=== PATIENT | male | born 1950 | race Caucasian/White ===

== ENCOUNTER → 2019-04-29 00:01 | Outpatient (RCR) | payer OTHER, SELFPAY | LOC: GILAB 04-01 15:01 | PROVIDERS: Family Provider Emergency Medicine Emergency Medical Services; Visit Provider Thoracic Surgery (Cardiothoracic Vascular Surgery) | DX: E86.0 Dehydration (principal); R53.81 Other malaise; J90 Pleural effusion, not elsewhere classified; T81.31XA Disruption of external operation (surgical) wound, not elsewhere classified, initial encounter; Y83.8 Other surgical procedures as the cause of abnormal reaction of the patient, or of later complication, without mention of misadventure at the time of the procedure | CPT/HCPCS: 11042 ×4; 96360 ×4; 96361 ×4; 97605 ×2; G0463 ×4 ==

== ENCOUNTER 2019-05-01 11:07 | Outpatient (RCR) | payer OTHER, MEDICARE, SELFPAY ==
[2019-05-01 11:09] VITALS: BP 108/61; PULSE 90; RESP 18; TEMP 36.9; O2SAT 97; BMI 22.9
[2019-05-01] MEDS: sodium chloride 0.9% 1,000 ML 333 ML (11:35)
[2019-05-08 10:25] VITALS: BP 118/63; PULSE 102; RESP 18; TEMP 36.6; O2SAT 95; BMI 22.9
[2019-05-08] MEDS: sodium chloride 0.9% 1,000 ML 333 ML (10:40)
[2019-05-15 11:07] VITALS: BP 124/77; PULSE 114; RESP 18; TEMP 36.7; O2SAT 98
[2019-05-15] MEDS: sodium chloride 0.9% 1,000 ML 30 ML (11:11)
[2019-05-22 11:03] VITALS: BP 104/61; PULSE 115; RESP 20; TEMP 37.1; O2SAT 98
[2019-05-22] MEDS: sodium chloride 0.9% 1,000 ML 333.3 ML IV (11:10)
[2019-05-29 11:09] VITALS: BP 101/61; PULSE 112; RESP 20; TEMP 37.3; O2SAT 96
[2019-05-29] MEDS: sodium chloride 0.9% 1,000 ML 33 ML (11:15)
== END 2019-05-30 23:59 | disposition home or self-care (01) ==
LOC: GILAB 11:07
PROVIDERS: Family Provider Emergency Medicine Emergency Medical Services; PCP Emergency Medicine Emergency Medical Services; Visit Provider Internal Medicine Critical Care Medicine
DX: E86.0 Dehydration (principal); R53.81 Other malaise; J90 Pleural effusion, not elsewhere classified
CPT/HCPCS: 96360; 96361; J7030

== ENCOUNTER 2019-05-14 13:07 | Outpatient (CLI) | payer OTHER, MEDICARE, SELFPAY | END 2019-05-14 13:08 | disposition home or self-care (01) | PROVIDERS: Family Provider Emergency Medicine Emergency Medical Services; PCP Emergency Medicine Emergency Medical Services; Visit Provider Internal Medicine Critical Care Medicine | DX: J43.9 Emphysema, unspecified (principal) | CPT/HCPCS: 94060; 94726; 94729; J7611 ==

== ENCOUNTER 2019-05-27 14:36 | Outpatient (RCR) | payer OTHER, MEDICARE, SELFPAY | END 2019-05-30 23:59 | disposition home or self-care (01) | LOC: WOUND 14:36 | PROVIDERS: Family Provider Emergency Medicine Emergency Medical Services; PCP Emergency Medicine Emergency Medical Services; Visit Provider Thoracic Surgery (Cardiothoracic Vascular Surgery) | DX: T81.31XA Disruption of external operation (surgical) wound, not elsewhere classified, initial encounter (principal); Y83.8 Other surgical procedures as the cause of abnormal reaction of the patient, or of later complication, without mention of misadventure at the time of the procedure; I96 Gangrene, not elsewhere classified | CPT/HCPCS: 11042; 96360; 96361 ==

== ENCOUNTER 2019-06-03 | Outpatient (RCR) | payer OTHER, MEDICARE, SELFPAY ==
[2019-06-03 10:59] VITALS: BMI 22.9
[2019-06-03 11:03] VITALS: BP 98/52; PULSE 104; RESP 18; TEMP 36.3; O2SAT 96
[2019-06-03] MEDS: sodium chloride 0.9% 1,000 ML 333 ML (11:06)
== END 2019-06-11 | disposition home or self-care (01) ==
LOC: GILAB
PROVIDERS: PCP Emergency Medicine Emergency Medical Services; Visit Provider Internal Medicine Critical Care Medicine
DX: J90 Pleural effusion, not elsewhere classified (principal)
CPT/HCPCS: 96365; 96366; J7030

== ENCOUNTER 2019-06-17 08:41 | Outpatient (RCR) | payer OTHER, MEDICARE, SELFPAY ==
--- NOTE | 2019-06-03 14:10 | CT_ITS ---
WS: [id number] CT scan of the chest with IV contrast, additional two-dimensional coronal and sagittal reconstruction was performed. 06/03/2019 Clinical Data: PAIN/SPLENOMEGALY/PLEURAL EFFUSION/ S/P THORACOTOMY Comparison: CTA of the chest, 03/26/2019 DLP: 1126.92 mGy-cm. All CT scans at [facility] use at least one of these dose optimization techniques: automat ed exposure control; mA and/or kV adjustment per patient size (includes targeted exams where dose is matched to clinical indication); or iterative reconstruction. Findings: Volume loss left lung with circumferential pleural thickening remains unchanged. Right lung is fully expanded. No nodules or masses are seen. Coronary artery calcification is again seen.. The heart size is normal with a small pericardial effusion. The pulmonary arterial system and thoracic aorta demons trate no abnormalities or dilatations. The left suprahilar lymph nodes maintain unchanged. No axillar y adenopathy is noted. The bones of the thorax show osteoarthritis of the thoracic vertebral bodies. FINDINGS: The spleen shows uniform enlargement with its greatest superior inferior dimension of 20.1 cm. No intrasplenic masses or capsular abnormalities are seen. The liver is enlarged measuring 23.3 c m and this can be seen with cirrhosis. Several intestinal varices are noted. The gallbladder is absen t with clips in the gallbladder fossa from a cholecystectomy. The adrenal glands and pancreas are nor mal. The kidneys show excellent bilateral contrast excretion with at least 2 small nonobstructing lef t renal calculi. No hydronephrosis, mass or obstruction is seen.. There is a small posterior right re nal cortical cyst. Abdominal aorta is normal in size with calcification of the wall. There is oral co ntrast within the stomach and small bowel. No obstruction is present. No abscess, adenopathy, ascites , mass or free air is present. The lumbar vertebral bodies show moderate osteoarthritic change. CT/CT chest abdomen w con* Impression: 1. Volume loss of the left lung with a circumferential pleural thickening remai ns unchanged. . 2. Hyperexpansion of the right lung unchanged. 3. No acute cardiopulmonary changes are noted. CT abdomen, additional sagittal and coronal imaging was performed IMPRESSION: 1. Hepatosplenomegaly with small varices most consistent with cirrhosis 2. Absent gallbladder.
[2019-06-03 15:06] LABS: Blood Urea Nitrogen 14 mg/dL (8-23); Glomerular Filtration Rate 112.1 mL/min (90-130)
[2019-06-03] MEDS: iohexol 300 mg/mL 100 mL Btl IV (15:23)
[2019-06-10] MEDS: sodium chloride 0.9% 1,000 ML 333 ML IV (10:23)
[2019-06-10 10:41] VITALS: BMI 22.1
[2019-06-10 10:50] VITALS: BP 94/54; PULSE 100; RESP 18; TEMP 37.7; O2SAT 96
[2019-06-17] MEDS: sodium chloride 0.9% 1,000 ML 333 ML IV (09:50)
[2019-06-17] MEDS: sodium chloride 0.9% 1,000 ML 335 ML (10:00)
[2019-06-17 10:03] VITALS: BP 113/57; PULSE 110; RESP 20; TEMP 36.5; O2SAT 96
[2019-06-24 09:47] VITALS: BP 119/52; PULSE 102; RESP 20; TEMP 36.1; O2SAT 95
[2019-06-24] MEDS: sodium chloride 0.9% 1,000 ML 333 ML IV (09:57)
== END 2019-06-28 23:59 | disposition home or self-care (01) ==
LOC: WOUND 08:41
PROVIDERS: Family Provider Emergency Medicine Emergency Medical Services; PCP Emergency Medicine Emergency Medical Services; Visit Provider Thoracic Surgery (Cardiothoracic Vascular Surgery)
DX: J90 Pleural effusion, not elsewhere classified (principal); D73.2 Chronic congestive splenomegaly; T81.31XA Disruption of external operation (surgical) wound, not elsewhere classified, initial encounter; Y83.8 Other surgical procedures as the cause of abnormal reaction of the patient, or of later complication, without mention of misadventure at the time of the procedure
CPT/HCPCS: 11042; 36415; 71260; 74160; 82565; 84520; 96360; 96361; 99212; J7030

== ENCOUNTER 2019-07-01 09:51 | Outpatient (RCR) | payer OTHER, MEDICARE, SELFPAY ==
[2019-07-01 10:05] VITALS: BP 95/60; PULSE 108; RESP 20; TEMP 36.7; O2SAT 96; BMI 21.5
[2019-07-01] MEDS: sodium chloride 0.9% 1,000 ML 400 ML (10:15)
[2019-07-08 10:03] VITALS: BP 113/59; PULSE 102; RESP 18; TEMP 36.9; O2SAT 98
[2019-07-08] MEDS: sodium chloride 0.9% 1,000 ML 999 ML (10:06)
== END 2019-07-29 23:59 | disposition home or self-care (01) ==
LOC: GILAB 09:51
PROVIDERS: Family Provider Emergency Medicine Emergency Medical Services; PCP Emergency Medicine Emergency Medical Services; Visit Provider Student in an Organized Health Care Education/Training Program
DX: E86.0 Dehydration (principal); R53.81 Other malaise; J90 Pleural effusion, not elsewhere classified
CPT/HCPCS: 96360; 96361; 96365; J7030

== ENCOUNTER 2019-07-23 10:07 | Outpatient (CLI) | payer OTHER, MEDICARE, SELFPAY ==
[2019-07-23 10:34] VITALS: BP 104/65; PULSE 98; RESP 18; TEMP 36.8; O2SAT 98
[2019-07-23] MEDS: sodium chloride 0.9% 1,000 ML 999 ML IV (10:35)
[2019-07-23 11:45] VITALS: BP 111/65; PULSE 97; RESP 18; TEMP 36.5; O2SAT 98
--- NOTE | 2019-07-23 11:59 | PC.NURSE ---
1015 A&O x3. States weak, become SOB and exhausted with exertion. c/o pain to L rib/chest area from previous drains and procedures. States willing to eat, but cooking for self is exhausting. States has some frozen meals. Lungs diminished on Left, clear on right. COVID 19 screening negative. Friend drove him to appt will wait in car.
--- NOTE | 2019-07-23 12:02 | PC.NURSE ---
1145 Clear lungs, diminished on Left. absent lower left base after NS bolus. Msg sent to [facility] office regarding pt pain needs and [facility] regarding [facility]. Assisted to parking lot to friend.
== END 2019-07-23 10:08 | disposition home or self-care (01) ==
LOC: RHEOACUTE 10:09
PROVIDERS: Family Provider Emergency Medicine Emergency Medical Services; PCP Emergency Medicine Emergency Medical Services; Visit Provider Internal Medicine Rheumatology
DX: E86.0 Dehydration (principal)
CPT/HCPCS: 96365; J7030

== ENCOUNTER 2019-08-06 11:17 | Outpatient (CLI) | payer OTHER, MEDICARE, SELFPAY ==
[2019-08-06] MEDS: sodium chloride 0.9% 1,000 ML 999 ML IV (11:28)
[2019-08-06 11:30] VITALS: BP 92/58; PULSE 102; RESP 20; TEMP 36.4; O2SAT 94
[2019-08-06 12:39] VITALS: BP 100/56; PULSE 96; RESP 16; TEMP 36.2
== END 2019-08-06 11:18 | disposition home or self-care (01) ==
LOC: RHEOACUTE 11:18
PROVIDERS: Family Provider Emergency Medicine Emergency Medical Services; PCP Emergency Medicine Emergency Medical Services; Visit Provider Internal Medicine Rheumatology
DX: E86.0 Dehydration (principal); J90 Pleural effusion, not elsewhere classified
CPT/HCPCS: 96365; J7030

== ENCOUNTER 2019-08-20 11:53 | Emergency (ER) | payer OTHER, SELFPAY ==
[2019-08-20 12:02] VITALS: BP 116/61; PULSE 108; RESP 17; TEMP 36.9; O2SAT 99; BMI 21.1
--- NOTE | 2019-08-20 12:04 | CT_ITS ---
WS: [id number] CT CHEST TECHNIQUE: Contrast enhanced CT of the chest with coronal and sagittal reformatted images. CLINICAL INFORMATION: left chest wall mass COMPARISON: CT June 03, 2019 DLP: 709.[address] scans at [facility] use at least one of these dose optimization techniques: automat ed exposure control; mA and/or kV adjustment per patient size (includes targeted exams where dose is matched to clinical indication); or iterative reconstruction. FINDINGS: Again seen is volume loss left lung with diffuse circumferential peripheral enhancing nodular pleural thickening progressed since the prior examination consistent with known neoplasm. Small volume pleur al fluid with a few pockets of air. Presumed neoplasm involves the intercostal spaces and multiple ri bs. This extends into the left upper abdominal wall with induration in the subcutaneous soft tissues. This extends to abut the pericardium and anterior mediastinum also present on the prior examination. Some of this may represent loculated pleural fluid/empyema Right lung is well aerated. Multiple new/progressed noncalcified nodules suspicious for metastatic di sease right upper lobe, right middle lobe, and right lower lobe. Largest nodule in the right lower lo be laterally measures 7.5 mm. Remaining nodules are subcentimeter in size. Enlarged pathologic AP win jeri no mediastinal and peribronchial lymph nodes. Cholecystectomy clips. Multiple new low-attenuation lesions in the liver partially evaluated most consistent with metastati c disease the largest lesions right hepatic lobe. Largest lesion measures 11 mm. Hepatomegaly. Spleno megaly. Cirrhosis with portal hypertension and varices.Mild thoracic curve. Thoracic kyphosis. Notified Dillan Villarreal MD at 08/20/2019 2:[address]/CT chest w con* [id number] IMPRESSION: 1. Evidence of progressed left lung circumferential diffuse neoplasm with prog ressed metastatic disease. 2. Volume loss left lung with diffuse nodular pleural-based thickening likely representing presumed neoplasm with empyema. This extends into the intercostal muscles and pleura. Extension into the left upper abdominal wall abutting the s kin with induration. This is progressed from previous. Diffuse involvement of t he intercostals and associated ribs. 3. Multiple new noncalcified pulmonary nodules right lung described above cons istent with metastatic disease. 4. Multiple new lesions partially visualized in the right hepatic lobe most co nsistent with metastatic disease. 5. Hepatomegaly with splenomegaly with cirrhosis and portal hypertension.
--- NOTE | 2019-08-20 12:06 | ED_ITS ---
HPI - Chest Pain General: Chief Complaint: General Medical Stated Complaint: LEFT SIDE MASS Time Seen by Provider: 08/20/19 12:00 Source: patient Mode of arrival: ambulatory Limitations: no limitations History of Present Illness: HPI narrative: 69-year-old male who has a history of having a Morley drain left side of his chest. He states over the last 2 to 3 weeks has had increasing swelling and pain where the drain was placed. He does have a large 7 to 8 cm area that is hard and swollen and quite tender. He denies any fevers. Denies any shortness of breath. Pain is worse with palpation. Associated symptoms: Deny abdominal pain, dyspnea, fever(s), nausea or vomiting Review of Systems Const: Denies: fever, chills, body aches or change in appetite Eyes: Denies: blurry vision or eye discomfort ENMT: Denies: throat pain or dental pain Card: Reports: chest pain Resp: Denies: shortness of breath GI: Denies: abdominal pain, nausea, vomiting or diarrhea : Denies: painful urination Musc: Denies: neck pain or back pain Skin/Breast: Denies: rash Neuro: Denies: headache Psych: Denies: depression Juan Diego/Lymph: Denies: easy bruising All/Imm: Denies: hives PFSH ED PFSH: Medical History (Updated 08/20/19 @ 15:42 by Dillan Villarreal MD) Carpal tunnel syndrome of left wrist Essential (primary) hypertension GERD (gastroesophageal reflux disease) History of throat cancer Hypothyroidism Osteoarthritis Pleural effusion Spleen enlarged Type 2 diabetes mellitus Surgical History (Updated 07/08/19 @ 13:51 by Elsa Quick MD) H/O eye surgery H/O rotator cuff surgery H/O shoulder surgery H/O wrist surgery History of carpal tunnel surgery of left wrist History of cholecystectomy History of lung surgery History of thoracentesis Hx of tonsillectomy Social History Smoking and tobacco status: never smoked Quit status (tobacco): has quit using tobacco Year quit tobacco: 1988 - 1.5 PPD x 15 Years Alcohol intake: former Year of sobriety/quit date alcohol: 1988 Lives independently: Yes Household members: none service: Yes Current occupational status: retired and disabled History of recent travel: No Current gender identity: Male Physical Exam Const: COMMON NORMALS: no apparent distress, oriented x3 and healthy appearing HENMT: COMMON NORMALS: normocephalic and head/scalp atraumatic HEAD & SCALP: normocephalic and atraumatic Eye: COMMON NORMALS: PERRL and EOMs intact bilaterally PUPIL: Yes PERRL Neck/C-Spine: COMMON NORMALS: full ROM and supple Chest: COMMONS NORMALS: palpation of chest normal OTHER: Swelling over left side of chest with tenderness no abscess formation. Resp: COMMON NORMALS: normal respiratory effort, no retractions, no use of accessory muscles and clear to auscultation bilaterally AUSCULTATION: clear to auscultation bilaterally Cardio: COMMON NORMALS: regular rate, regular rhythm and no murmurs RATE: regular rate RHYTHM: regular rhythm GI: COMMON NORMALS: normal to inspection, nondistended, normoactive bowel sounds, soft to palpation, non-tender and no masses PALPATION: Yes soft Extremity: COMMON NORMALS: normal to inspection and full ROM Neuro: COMMON NORMALS: oriented x3, moves all extremities and no focal motor deficits Psych: COMMON NORMALS: mental status grossly normal, thought process normal and cooperative THOUGHT PROCESS: normal thought process Skin: COMMON NORMALS: no rashes or lesions noted and no wounds GENERAL SKIN EXAM: no rashes or lesions noted Course Vital Signs: Vital signs: Vital Signs Temperature 98.4 F 08/20/19 12:02 Pulse Rate 86 08/20/19 16:00 Respiratory Rate 16 08/20/19 16:00 Blood Pressure 101/54 08/20/19 16:00 Pulse Oximetry 96 08/20/19 16:00 MDM - Chest Pain MDM Narrative: Medical decision making narrative: Patient presents here with lumps in his outer chest wall. CT of his chest shows likely lung mass with mets. He is to follow-up with Dr. Terrence Cespedes and oncology. Patient has no signs of coronary cause for his pain. Patient feels improved and will prescribe pain meds for home. He is stable for discharge and return if worsening. Lab Data: Labs: Lab Results 08/20/19 08/20/19 08/20/19 Range/Units 12:27 12:27 14:51 WBC 7.9 (4.0-10.0) 10^3/ uL RBC 3.92 L (4.1-5.3) 10^6/u L Hgb 8.5 L (11.7-16.6) g/dL Hct 29.6 L (42.0-52.0) % MCV 75.5 L (80-94) fL MCH 21.7 L (28.0-34.0) pg MCHC 28.7 L (30.0-36.0) g/dL RDW 17.9 H (12.1-15.1) % Plt Count 368 (130-400) 10^3/c mm MPV 10.7 H (7.4-10.4) fL Neut % (Auto) 77.8 % Lymph % (Auto) 12.2 % [place] % (Auto) 8.2 % Eos % (Auto) 1.1 % Baso % (Auto) 0.3 % Neut # (Auto) 6.1 (1.8-7.7) 10^3/u L Lymph # (Auto) 1.0 (0.8-4.8) 10^3/u L [place] # (Auto) 0.6 (0.2-0.9) 10^3/u L Eos # (Auto) 0.1 (0.0-0.8) 10^3/u L Baso # (Auto) 0.0 (0.0-0.1) 10^3/u L Nucleated RBC % (a uto) 0 % Nucleated RBCs # 0.0 /100WBC Sodium Cancelled 134 L Potassium Cancelled 4.9 Chloride Cancelled 95 L Carbon Dioxide Cancelled 29 Anion Gap Cancelled 14.9 BUN Cancelled 19 Creatinine Cancelled 0.7 GFR Calculation Cancelled 112.1 Glucose Cancelled 118 H Calculated Osmolal ity Cancelled 276 L Calcium Cancelled 10.1 Total Bilirubin Cancelled 0.2 AST Cancelled 19 ALT Cancelled 10 Alkaline Phosphata se Cancelled 425 H Total Protein Cancelled 7.9 Albumin Cancelled 2.7 L Globulin Cancelled 5.2 H Imaging Data^: CT Chest: Attestation: I personally reviewed and interpreted this imaging study as follows: Radiologist's impression: [address] [place] [address] CT Scan Report Signed Patient: Adam Sams Unit #: [id number] : [id number] Age/Sex: 69 / M ADM Date: 08/20/19 Loc: ER Room/Bed: Attending Dr: Ordering Provider/Ordering MD: Dillan Villarreal MD Date of Service: 08/20/19 Procedure(s): CT chest w con* [id number] Accession Number(s): [id number] Report Number: [id number] WS: [id number] CT CHEST TECHNIQUE: Contrast enhanced CT of the chest with coronal and sagittal refor matted images. CLINICAL INFORMATION: left chest wall mass COMPARISON: CT June 03, 2019 DLP: 709.[address] scans at [facility] use at least one of these dose opt imization techniques: automated exposure control; mA and/or kV adjustment per patient size (includes targeted exams where dose is matched to clinical indication); or iterative reconstruction. FINDINGS: Again seen is volume loss left lung with diffuse circumferential peripheral enhancing nodular pleural thickening progressed since the prior examination consistent with known neoplasm. Small volume pleural fluid with a few pockets of air. Presumed neoplasm involves the intercostal spaces and multiple ribs. This extends into the left upper abdominal wall with induration in the subcutaneous soft tissues. This extends to abut the pericardium and anterior mediastinum also present on the prior examination. Some of this may represent loculated pleural fluid/empyema Right lung is well aerated. Multiple new/progressed noncalcified nodules suspicious for metastatic disease right upper lobe, right middle lobe, and right lower lobe. Largest nodule in the right lower lobe laterally measures 7.5 mm. Remaining nodules are subcentimeter in size. Enlarged pathologic AP window no mediastinal and peribronchial lymph nodes. Cholecystectomy clips. Multiple new low-attenuation lesions in the liver partially evaluated most consistent with metastatic disease the largest lesions right hepatic lobe. Largest lesion measures 11 mm. Hepatomegaly. Splenomegaly. Cirrhosis with portal hypertension and varices.Mild thoracic curve. Thoracic kyphosis. Notified Dillan Villarreal MD at 08/20/2019 2:[address]/CT chest w con* [id number] IMPRESSION: 1. Evidence of progressed left lung circumferential diffuse neoplasm with progressed metastatic disease. 2. Volume loss left lung with diffuse nodular pleural-based thickening likely representing presumed neoplasm with empyema. This extends into the intercostal muscles and pleura. Extension into the left upper abdominal wall abutting the skin with induration. This is progressed from previous. Diffuse involvement of the intercostals and associated ribs. 3. Multiple new noncalcified pulmonary nodules right lung described above consistent with metastatic disease. 4. Multiple new lesions partially visualized in the right hepatic lobe most consistent with metastatic disease. 5. Hepatomegaly with splenomegaly with cirrhosis and portal hypertension. Discharge Plan Discharge Patient Disposition: Home, Self-Care Clinical Impression: Lung mass Condition: Stable Prescriptions: [place] 5-325 mg tablet 1 tab PO Q6H PRN (Reason: pain) Qty: 14 RF: 0 No Action pantoprazole 20 mg tablet,delayed release (DR/EC) 20 mg PO BID RF: 0 Glucerna Liquid 1 each PO QID PRNRF: 0 docusate sodium [Stool Softener] 100 mg capsule 100 mg PO TID RF: 0 Best Fiber 3 gram/3.5 gram powder 1.5 gm PO DAILY RF: 0 acetaminophen [Tylenol] 325 mg capsule 650 mg PO QID PRNRF: 0 Anoro Ellipta 62.5-25 mcg/actuation blister with device 1 inh INHALATION DAILY Qty: 60 RF: 4 ferrous sulfate 325 mg (65 mg iron) Tablet 325 mg PO EVERY OTHER DAY RF: 0 levothyroxine 137 mcg Capsule 139 mcg PO DAILY RF: 0 albuterol sulfate 90 mcg/actuation Hfa Aerosol Inhaler 2 puff INHALATION QID PRN (Reason: Pain) RF: 0 colchicine 0.6 mg Tablet 0.6 mg PO DAILY PRN (Reason: GOUT) RF: 0 fluticasone propionate [Flonase Allergy Relief] 50 mcg/actuation [place],Suspension 1 spray INTRANASAL DAILY RF: 0 Creon 3,000-9,500- 15,000 unit Capsule,Delayed Release(Dr/Ec) 6,000 cap PO TID RF: 0 Discharge Orders: Discharge Order (Routine); Ordered 08/20/19 Ordered By: Dillan Villarreal Referrals: Alex Baeza DO [Primary Care Provider] - Elsa Quick MD [Physician] - Discharge Diet: Advance as tolerated Discharge Activity: Resume usual activity Patient Instructions: Lump/Mass Discharge Date/Time: 08/20/19 16:02 Coding Level of Care Code ED Fund Accountant for Chg Fwd Exam Comprehensive
[2019-08-20 12:29] VITALS: RESP 17
[2019-08-20 12:34] VITALS: RESP 16
[2019-08-20] MEDS: morphine 4 mg/mL SDV 1 mL IVP (12:34)
[2019-08-20] MEDS: ondansetron 2 mg/ML SDV 2 mL 4 MG IVP (12:34)
[2019-08-20 12:51] LABS: Basophils % 0.3 %; Eosinophils # 0.1 10^3/uL (0.0-0.8); Eosinophils % 1.1 %; Hematocrit 29.6 % (42.0-52.0); Hemoglobin 8.5 g/dL (11.7-16.6); Lymphocytes % 12.2 %; Mean Corpuscular HGB Conc 28.7 g/dL (30.0-36.0); Mean Corpuscular Hemoglobin 21.7 pg (28.0-34.0); Mean Corpuscular Volume 75.5 fL (80-94); Mean Platelet Volume 10.7 fL (7.4-10.4); Monocytes # 0.6 10^3/uL (0.2-0.9); Monocytes % 8.2 %; Neutrophils # 6.1 10^3/uL (1.8-7.7); Neutrophils % 77.8 %; Nucleated Red Blood Cells % 0 %; Platelet Count 368 10^3/cmm (130-400); Red Blood Count 3.92 10^6/uL (4.1-5.3); Red Cell Distribution Width 17.9 % (12.1-15.1); White Blood Count 7.9 10^3/uL (4.0-10.0)
[2019-08-20] MEDS: iohexol 300 mg/mL 100 mL Btl IV (13:33)
[2019-08-20 13:59] VITALS: O2SAT 96
[2019-08-20 15:00] VITALS: BP 87/48; RESP 16; O2SAT 96
[2019-08-20 15:19] LABS: Alanine Aminotransferase 10 U/L (0-41); Albumin Level 2.7 g/dL (3.5-5.2); Alkaline Phosphatase 425 IU/L (40-130); Anion Gap 14.9 (5-19); Aspartate Amino Transferase 19 U/L (0-40); Blood Urea Nitrogen 19 mg/dL (8-23); Calcium 10.1 mg/dL (8.5-10.5); Carbon Dioxide 29 mmol/L (22-29); Chloride 95 mmol/L (98-107); Globulin 5.2 g/dL (1.3-4.6); Glomerular Filtration Rate 112.1 mL/min (90-130); Glucose 118 mg/dL (65-115); Osmolality Calculated 276 mOsm/kg (285-295); Potassium 4.9 mmol/L (3.5-5.1); Sodium 134 mmol/L (136-145); Total Bilirubin 0.2 mg/dL (0.15-1.2); Total Protein 7.9 g/dL (6.6-8.7)
[2019-08-20] MEDS: sodium chloride 0.9% 1,000 ML 999 ML IV (15:19)
[2019-08-20 16:00] VITALS: BP 101/54; PULSE 86; RESP 16; O2SAT 96
--- NOTE | 2019-08-22 10:48 | DCPLANNER ---
resident care manager had message to refer patient to oncology, and Dr. Qucik. resident care manager called oncology, spoke with Jose L, was told that patient would need to start with Dr. Quick to have some pathology completed. resident care manager called [facility], spoke with Kiara, gave [facility] the referral, was told that patients information would be printed and reviewed. Clinic will call patient with appointment information. resident care manager also called K[facility] and informed her that patient was seen in the ED and that patient needed a referral to [facility] and oncology.
--- NOTE | 2019-08-26 08:48 | DCPLANNER ---
Patient has a follow up appointment scheduled for Monday, August 26, 2019 at 3:[address] Quick. Clinic will call patient with appointment information.
--- NOTE | 2019-09-16 15:21 | DCPLANNER ---
Patient did attend appointment scheduled for 08.26.19 with [facility].
== END 2019-08-20 16:02 | disposition home or self-care (01) ==
PROVIDERS: Emergency Provider Emergency Medicine; Family Provider Emergency Medicine Emergency Medical Services; PCP Emergency Medicine Emergency Medical Services
DX: R91.8 Other nonspecific abnormal finding of lung field (principal); I10 Essential (primary) hypertension; K21.9 Gastro-esophageal reflux disease without esophagitis; Z85.21 Personal history of malignant neoplasm of larynx; E03.9 Hypothyroidism, unspecified; E11.9 Type 2 diabetes mellitus without complications; M19.90 Unspecified osteoarthritis, unspecified site; Z87.891 Personal history of nicotine dependence
CPT/HCPCS: 12345; 71260; 80053; 85025; 96361; 96374; 96375; 99282; 99284; J2270; J2405; J7030; Q9967

== ENCOUNTER → 2019-09-10 11:29 | Day surgery (SDC) | payer OTHER, MEDICARE, SELFPAY ==
[2019-09-10] MEDS: sodium chloride 0.9% 1,000 ML 999 ML IV (12:18)
[2019-09-10 12:39] VITALS: BMI 25.2
[2019-09-10 12:43] VITALS: BP 90/59; PULSE 112; RESP 20; TEMP 36.5; O2SAT 97
== END ==
PROVIDERS: PCP Emergency Medicine Emergency Medical Services; Visit Provider Student in an Organized Health Care Education/Training Program
DX: E86.0 Dehydration (principal); R53.81 Other malaise; J90 Pleural effusion, not elsewhere classified
CPT/HCPCS: 96360; J7030

== ENCOUNTER 2019-09-15 09:50 | Outpatient (CLI) | payer OTHER, MEDICARE, SELFPAY ==
--- NOTE | 2019-09-16 19:11 | ONC CON_ITS ---
Dr. Fink New Patient Note Patient: Adam Sams Unit #: [id number]: 1950 Dicatated By: Nithin Fink M.D.Date of Visit: September 15, 2019 Onc MED New Patient/Consult Referring Physician: Dr. YOUNG ANTONY M.D. History of Present Illness: Mr. Adam Sams, is a 69-year-old gentleman, with history of recurrent left lung pneumonia and pleural effusion,, was evaluated by Dr. Lizama in September 2018. At that time , thoracentesis was done which showed inflammation or possible infection, subsequently he underwent repeat procedure including thoracotomy, postop wound infection and other issues, as per patient, he continued to feel weak and tired, poor appetite and he lost about 90 pounds in one year. And recently seen by Dr. Lizama for repeat biopsy but Dr. Lizama informed him that as per his discussion with pathology the preliminary report confirmed mesothelioma so no further biopsy is needed. As per patient he did notice swelling in the left chest wall progressed to the left side of abdomen too . Also complaining of chest wall pain somewhat controlled with pain medication., His overall condition continued to deteriorate now using the wheelchair to ambulate. Patient has history of base of the tongue cancer, diagnosed about 20 years ago at [facility] at that time he underwent resection with radical neck dissection followed by radiation therapy. As per patient no chemotherapy was given. He also has history of hepatic cirrhosis, diagnosed about 15 years ago and now with splenomegaly. As per patient prior to cirrhosis of the liver, he was diagnosed with fatty liver. Is a [place] , has exposure to asbestos in the past. Patient is complaining of poor appetite and weight loss and now with generalized weakness and fatigue and left chest wall pain with a mass protruding through the left lateral chest wall where biopsy was done earlier. And also complaining of fullness and progressive swelling involving left side of abdomen. Patient had multiple CT scan of chest in the past and recently underwent CT PET scan on 09/06/2019 which showed thickened left pleura is hypermetabolic, consistent with malignancy right lung pulmonary nodules, too small to characterize but strongly consistent with malignancy. Abdominal wall invasion as subcutaneous left flank mass, hepatic metastatic disease, osseous metastatic disease, malignant mediastinal lymphadenopathy. Patient has a poor social setup, lives alone with family/friends close by. Denies any fever or chills, denies any nausea or vomiting, denies any diarrhea but constipation but laxative is helpful. Patient appears emaciated with significant muscle wasting, with difficulty in walking, using wheelchair and most of time stay in the bed. Past Medical History: Mr. Sams's medical history consists of enlarged spleen, gastroesophageal reflux disease, history of esophageal cancer, history of pleural effusion, hypertension, hypothyroidism, osteoarthritis, and type II diabetes. Past Surgical History: Mr. Sams's surgical/procedural history consists of bronchoscopy, cholecystectomy, eye surgery, left carpal tunnel release, rotator cuff repair, thoracentesis, and tonsillectomy. Medications: Ferrous Gluconate 1 Tablet (of 324 (37.5 fe) mg) Oral daily, HYDROcodone-Acetaminophen 1 Tablet (of 5-325 mg) Oral q 6 hours PRN, Levothyroxine Sodium 1 Tablet (of 125 mcg) Oral daily, Omeprazole 1 Capsule (of 20 mg) Capsule Delayed Release Oral b.i.d., ProAir HFA Aerosol, solution Inhalation Allergies: No Known Allergies. Social History: Mr. Sams is and he is retired. Mr. Sams quit smoking 31 years ago but had smoked for 15 years. He quit drinking 31 years ago. Mr. Sams reports the following support systems: lives alone. Family History: Mr. Sams's mother is : chronic kidney disease. Review Of Symptoms: Constitutional - Appetite is poor and Pt states he has lost about 90lbs in past 6 months. No fever, chills, hot flashes, or night sweats. Energy level is poor, ENMT - No sinus congestion/drainage. No mouth sores. No sore throat or difficulty swallowing, Hematologic/Lymphatic - Positive for easy bruising and bleeding, Respiratory - Positive for shortness of breath and cough. No pleuritic pain or hemoptysis, Cardiovascular - No angina pain. No palpitations, Gastrointestinal - No nausea or vomiting. No heartburn or acid reflux. No diarrhea or constipation. No blood in the stool or black stools, Genitourinary (M) - No dysuria or hematuria. No urinary frequency. No urgency or incontinence, Musculoskeletal - Positive for back/chest/abdominal pain, Neurologic - No headache or dizziness. No numbness/paresthesias or other focal neurologic symptoms, Psychiatric - Positive for situational anxiety and depression. No insomnia. Vital Signs: Performed on September 15, 2019 10:46: 8, 2.40 (LOW), 2.27 sq.m, 144.2 in, 91 % (LOW), 67 /min, 17 /min, 100/62 mm(hg), 97.8 F (LOW), and 71 lbs (HIGH). Performance Status: 3 - Capable of only limited self-care, confined to bed or chair more than 50% of waking hours. (ECOG) Physical Examination: ENMT - poor oral hygiene, no mouth sores, Respiratory - poor air entry, no breath sound at left lung base and left chest wall deformity due to protruding lung mass, Cardiovascular - Regular rate and rhythm of heart, Abdomen - soft bowel sounds present, fullness in left abdominal wall, Extremities - 1+ edema bilaterally. Lab/Imaging: Most recent lab results are not available for this patient. Impression: Metastatic mesothelioma with extensive local involvement per CT PET scan done on 09/06/2019 which showed thickened left pleura is hypermetabolic, consistent with malignancy, right lung primary nodules, too small to characterize but strongly consistent with malignancy. Abdominal wall invasion as subcutaneous left flank mass, hepatic metastatic disease, osseous metastatic disease, malignant mediastinal lymphadenopathy Over 90 pound weight loss in one year now with severe muscle wasting, requiring wheelchair to ambulate. Hepatic cirrhosis with splenomegaly History of base of the tongue cancer, as per patient, diagnosed 20 years ago at [facility], status post resection and radical neck dissection followed by radiation therapy alone Plan: Discussed with patient regarding his disease status and treatment options, including palliative therapy or supportive care and hospice. patient has poor performance status due to significant weight loss, now wheelchair bound, most of time stay in the bed. Recently done CT PET scan showed extensive metastatic disease involving lungs, mediastinal lymphadenopathy, hepatic metastases, bone metastases, with main concern is extensive local involvement and not tumor is protruding through left chest wall and left abdomen involvement. Due to poor performance status and compromise support system and comorbid conditions including hepatic cirrhosis/splenomegaly, patient, has a very poor prognosis and may not tolerate even palliative therapy. Patient is not interested in chemotherapy rather supportive care and knowing the extent of disease and prognosis, opted for hospice care And as mentioned earlier considering nature and extent of the disease e.g. metastatic disease and relatively less sensitive to chemotherapy, and comorbid condition including cirrhosis and splenomegaly which may interfere with cell count recovery. And poor nutritional status and compromise support system, hospice care, I think is an appropriate option., Thus, Will refer him to hospice for evaluation and management Signed By: Nithin Fink M.D. <<Signature on File>>
== END 2019-09-15 09:51 | disposition home or self-care (01) ==
LOC: ONCMED 10:00
PROVIDERS: PCP Emergency Medicine Emergency Medical Services; Referring Provider Emergency Medicine Emergency Medical Services; Visit Provider Internal Medicine Hematology & Oncology
DX: C45.7 Mesothelioma of other sites (principal); C78.7 Secondary malignant neoplasm of liver and intrahepatic bile duct; C78.02 Secondary malignant neoplasm of left lung; C78.01 Secondary malignant neoplasm of right lung; C79.51 Secondary malignant neoplasm of bone; C77.1 Secondary and unspecified malignant neoplasm of intrathoracic lymph nodes; C79.89 Secondary malignant neoplasm of other specified sites; K74.60 Unspecified cirrhosis of liver; D73.2 Chronic congestive splenomegaly; R63.4 Abnormal weight loss; Z85.810 Personal history of malignant neoplasm of tongue; Z92.3 Personal history of irradiation; Z77.090 Contact with and (suspected) exposure to asbestos; Z99.3 Dependence on wheelchair
CPT/HCPCS: 99203

== ENCOUNTER 2019-09-23 11:18 | Outpatient (CLI) | payer OTHER, MEDICARE, SELFPAY ==
[2019-09-23] MEDS: sodium chloride 0.9% 1,000 ML 999 ML IV (11:30)
== END 2019-09-23 11:19 | disposition home or self-care (01) ==
LOC: ONCMED 11:22
PROVIDERS: PCP Emergency Medicine Emergency Medical Services; Visit Provider Internal Medicine Hematology & Oncology
DX: C45.7 Mesothelioma of other sites (principal)
CPT/HCPCS: 96360; J7030